=== PATIENT | female | born 2000 | race Caucasian/White ===

== ENCOUNTER 2020-06-30 21:36 | Emergency (ER) | payer BC, MEDICAID ==
--- NOTE | 2020-06-30 22:28 | EDM.PDOC ---
ED HPI GENERAL MEDICAL PROBLEM - General Chief Complaint: ENT Problem Stated Complaint: FEVER,SORE THROAT ,NAUSEA Time Seen by Provider: 06/30/20 22:15 Source of Information: Reports: Patient, RN. Denies: Old Records History Limitations: Reports: No Limitations - History of Present Illness INITIAL COMMENTS - FREE TEXT/NARRATIVE: 19 yo female presents with a couple days of sore throat, not bad enough to need acetaminophen or anything for the pain. No fever or rash. Has rhinorrhea in the mornings from her allergies. Is not treating her allergies. Also, wants a preg test. Onset: Gradual Onset Date: 06/28/20 Duration: Day(s): (2), Getting Worse Location: Reports: Face (nose), Neck (throat) Quality: Reports: Dull Severity: Mild Improves with: Reports: None Worsens with: Reports: Other (? time) Context: Reports: Other (See HPI) Associated Symptoms: Reports: Other (some uterine cramping) Treatments MEAT APPRENTICE: Reports: Other (see below) (none) Throat Pain Score (Numeric/FACES): 4 Lower Abdomen Pain Score (Numeric/FACES): 6 - Related Data Allergies Allergy/AdvReac Type Severity Reaction Status Date / Time Penicillins Allergy Rash Verified 06/30/20 21:54 vancomycin Allergy Hives Verified 06/30/20 21:53 Home Meds: Home Meds Escitalopram [Lexapro] 1 tab PO DAILY 06/30/20 [History] norgestimate-ethinyl estradioL [Pvp-Tc-Fsjvliwa Tablet] 1 tab PO DAILY 06/30/20 [History] Past Medical History HEENT History: Reports: Allergic Rhinitis Respiratory History: Reports: Bronchitis, Recurrent 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 (See Below) 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 WORK 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 History: ovarian cysts Musculoskeletal History: Reports: Fracture Other Musculoskeletal History: left arm and skull fracture Neurological History: Reports: Brain Injury, Head Trauma, Other (See Below) Other Neuro History: kicked in the head by a horse - TBI - Past Surgical History HEENT Surgical History: Reports: Oral Surgery Social & Family History - Tobacco Use Tobacco Use Status *Q: Never Tobacco User - Caffeine Use Caffeine Use: Reports: Coffee - Recreational Drug Use Recreational Drug Use: No ED ROS ENT - Review of Systems Review Of Systems: See Below Constitutional: Denies: Fever, Chills HEENT: Reports: Rhinitis, Throat Pain. Denies: Throat Swelling Respiratory: Reports: No Symptoms Cardiovascular: Reports: No Symptoms GI/Abdominal: Reports: No Symptoms : Reports: Other (uterine cramping) Musculoskeletal: Reports: No Symptoms Skin: Reports: No Symptoms ED EXAM, ENT - Physical Exam Exam: See Below Exam Limited By: No Limitations General Appearance: Alert, WD/WN, No Apparent Distress Eye Exam: Bilateral Eye: Normal Inspection Ears: Normal External Exam, Normal Canal, Hearing Grossly Normal, Normal TMs Nose: Other (nasal congestion) Mouth/Throat: Normal Inspection, Normal Lips, Normal Oropharynx Head: Atraumatic, Normocephalic Neck: Normal Inspection Respiratory/Chest: No Respiratory Distress, Lungs Clear, Normal Breath Sounds, No Accessory Muscle Use Course - Vital Signs Last Recorded V/S: Last Vital Signs Temp 36.7 C 06/30/20 21:51 Pulse 82 06/30/20 21:51 Resp 16 06/30/20 21:51 BP 139/78 06/30/20 21:51 Pulse Ox 98 06/30/20 21:51 - Orders/Labs/Meds Labs: Laboratory Tests 06/30/20 Range/Units 22:33 Urine HCG, Qual Negative Departure - Departure Time of Disposition: 22:40 Disposition: Home, Self-Care 01 Condition: Good Clinical Impression: Allergic rhinitis Qualifiers: Allergic rhinitis trigger: pollen Allergic rhinitis seasonality: seasonal Qualified Code(s): J30.1 - Allergic rhinitis due to pollen - Discharge Information *PRESCRIPTION DRUG MONITORING PROGRAM REVIEWED*: Not Applicable *COPY OF PRESCRIPTION DRUG MONITORING REPORT IN PATIENT BRIT: Not Applicable Instructions: Allergic Rhinitis, Adult, [id number] Referrals: PCP,None [Primary Care Provider] - Forms: ED Department Discharge Additional Instructions: Use Zyrtec D for your current symptoms and acetaminophen for pain relief as needed. Recheck for fever. Your preg test was negative today. Sepsis Event Note (ED) - Evaluation Sepsis Screening Result: No Definite Risk - Focused Exam Vital Signs: Vital Signs Temp Pulse Resp BP Pulse Ox 06/30/20 21:51 36.7 C 82 16 139/78 98
== END 2020-06-30 22:47 | disposition home or self-care (01) ==
LOC: JP.ED 21:36
DX: J30.1 Allergic rhinitis due to pollen (principal); Z88.0 Allergy status to penicillin; Z88.1 Allergy status to other antibiotic agents; Z79.899 Other long term (current) drug therapy
CPT/HCPCS: 81025; 99282; 99283